=== PATIENT | female | born 1945 | race Hispanic/Latino ===

== ENCOUNTER 2019-06-02 11:18 | Emergency (ER) | payer MEDICARE, OTHER ==
[~2019-06-02] VITALS: Ht 160 cm; Wt 65.8 kg
--- OUTSIDE RECORDS SUMMARY | 2019-06-02 11:20 | XMS REPORT ---
[facility] Address [facility] Phone Unavailable Care Team Providers Care [employer]ience [employer] Manager Name Role Phone Unavailable Unavailable Problems This patient has no known problems. Allergies, Adverse Reactions, Alerts This patient has no known allergies or adverse reactions. Medications This patient has no known medications. Encounters Start Date/Time End Date/Time Encounter Type Admission Type Attending [facility] Care Department Encounter ID 2018-09-26 00:00:00 2018-09-26 00:00:00 Outpatient [facility] [id number] 2018-08-04 00:00:00 2018-08-04 00:00:00 Outpatient [facility] [id number] 2018-06-14 07:36:46 2018-06-14 07:36:46 Outpatient [facility] [id number] 2018-06-09 09:48:20 2018-06-09 09:48:20 Outpatient [facility] [id number] 2018-06-09 08:19:18 2018-06-09 08:19:18 Outpatient [facility] [id number] 2018-06-09 00:00:00 2018-06-09 00:00:00 Outpatient [facility] [id number] 2017-12-19 08:28:48 2017-12-19 08:28:48 Outpatient [facility] [id number] 2017-12-12 09:17:07 2017-12-12 09:17:07 Outpatient [facility] [id number] 2017-12-12 07:51:25 2017-12-12 07:51:25 Outpatient [facility] [id number] 2017-06-10 00:00:00 2017-06-10 00:00:00 Outpatient [facility] [id number] 2017-05-27 00:00:00 2017-05-27 00:00:00 Outpatient [facility] [id number] 2017-05-16 09:55:27 2017-05-16 09:55:27 Outpatient [facility] [id number] 2017-04-14 10:07:43 2017-04-14 10:07:43 Outpatient [facility] [id number]
[2019-06-02] MEDS ORDERED: BRILINTA90 MG PO (11:37)
[2019-06-02] MEDS ORDERED: PREDNISONE5 MG PO (11:37)
[2019-06-02] MEDS ORDERED: ASPIRIN81 MG PO (11:37)
[2019-06-02] MEDS ORDERED: AMLODIPINE BESY10 MG PO (11:37)
[2019-06-02] MEDS ORDERED: FOLIC ACID1 MG PO (11:37)
[2019-06-02] MEDS ORDERED: METHOTREXATE2.5 MG PO (11:37)
[2019-06-02] MEDS ORDERED: LEVOTHYROXINE50 MCG PO (11:37)
[2019-06-02] MEDS ORDERED: METOPROLOL TART25 MG PO (11:37)
[2019-06-02] MEDS ORDERED: GABAPENTIN300 MG PO (11:37)
[2019-06-02] MEDS ORDERED: ATORVASTATIN CA20 MG PO (11:37)
[2019-06-02] MEDS ORDERED: HYDROXYCHLOROQ200 MG PO (11:37)
--- NOTE | 2019-06-02 11:41 | NUR ---
PT STATES HER BP'S ARE VASTLY DIFFERENT PRESSURES. RT HIGH THAN LEFT PER PT AND HER . RT ARM 209/91 LEFT ARM 110/64 PT STATES NO HEART ATTACK, BUT HAD NO HEART ATTACK IN 12/2018 WHEN SHE WAS GIVEN A HEART STENT.
== END 2019-06-02 12:37 | disposition home or self-care (01) ==
LOC: FSED 11:18
DX: B02.22 Postherpetic trigeminal neuralgia (principal); R51 Headache; I10 Essential (primary) hypertension; M06.9 Rheumatoid arthritis, unspecified; I25.119 Atherosclerotic heart disease of native coronary artery with unspecified angina pectoris; E78.5 Hyperlipidemia, unspecified; E03.9 Hypothyroidism, unspecified; E03.4 Atrophy of thyroid (acquired)
CPT/HCPCS: 80307; 99283